=== PATIENT | male | born 1940 | race Caucasian/White ===

== ENCOUNTER 2017-05-23 08:53 | Day surgery (SDC) | payer MEDICARE, OTHER ==
[2017-05-23] MEDS ORDERED: PHENYLEPHRINE 2.5% OPHTH 2 ML DROPS ONE (09:32)
[2017-05-23] MEDS ORDERED: LACTATED RINGERS 500 ML IV ONE (09:42)
[2017-05-23] MEDS ORDERED: PROPARACAINE 0.5% OPHTH DROPS 15 ML OPTH ONE ×2 (09:50→10:55)
[2017-05-23] MEDS ORDERED: KETOROLAC 0.45% OPHTH DROPS OPTH ONE (09:50)
[2017-05-23] MEDS ORDERED: CYCLOPENTOLATE 1% OPHTH DROPS 2 ML OPTH ONE (09:50)
[2017-05-23] MEDS ORDERED: PHENYLEPHRINE 2.5% OPHTH 2 ML DROPS OPTH ONE (09:50)
[2017-05-23] MEDS ORDERED: MIDAZOLAM 2 MG/2 ML VIAL IVP ONE (10:50)
[2017-05-23] MEDS ORDERED: LIDOCAINE-MPF 2% 5 ML VIAL IM ONE (10:50)
[2017-05-23] MEDS ORDERED: CHONDR SULF/HYALURONATE SYRINGE IO ONE (10:55)
[2017-05-23] MEDS ORDERED: EPINEPHrine 1 MG/ML AMP IVP ONE (10:55)
[2017-05-23] MEDS ORDERED: BRIMONIDINE 0.2% OPHTH DROPS 5 ML OPTH ONE (10:55)
[2017-05-23] MEDS ORDERED: TIMOLOL 0.5% OPHTH DROPS OPTH ONE (10:55)
[2017-05-23] MEDS ORDERED: BSS/LIDOCAINE/EPINEPHRINE 1 ML SYRINGE IO ONE (10:56)
[2017-05-23] MEDS ORDERED: TRIAMCIN/MOXIFLOX/VANCO 1 ML VIAL IO ONE (10:56)
[2017-05-23 11:41] VITALS: BP 112/61
--- NOTE | 2017-05-27 07:52 | OPERATIVE REPORT ---
DATE OF SURGERY: 05/23/2017 00:00:00 PREOPERATIVE DIAGNOSIS: Visually significant cataract, left eye. This was his first cataract surgery. POSTOPERATIVE DIAGNOSIS: Visually significant cataract, left eye. This was his first cataract surgery. PROCEDURE: Phacoemulsification and posterior chamber intraocular lens implant, left eye. SURGEON: Nabil Boateng MD ANESTHESIA: Monitored anesthesia care. COMPLICATIONS: None. OPERATIVE INDICATIONS: This is a 77-year-old man with progressive vision loss in the left eye due to 2+ nuclear sclerotic cataract. Best corrected visual acuity was 20/40, with glare to 20/60 in the left eye. Indications for surgery were overall decrease in vision, difficulty seeing words on a computer screen, difficulty reading, difficulty seeing words and game scores on TV, difficulty seeing street signs, difficulty driving in low light or at night, difficulty driving at night because of headlights from other vehicles, difficulty with glare of bright lights in any situation, and decreased acuity with fire arms. He was consented at length concerning the risks and benefits of cataract surgery , after which he expressed a desire to proceed with surgery. OPERATIVE PROCEDURE: The patient was taken into operating room #2 and placed under monitored anesthesia care. A surgical time-out was conducted, confirming correct the patient, correct procedure, and correct surgical site. He was given topical anesthesia and then prepped and draped in the usual sterile fashion. The eye was entered at the 6- and 3-o'clock positions. Intracameral lidocaine was injected into the anterior chamber, followed by Viscoat. A continuous tear curvilinear capsulorrhexis was performed. The nucleus was hydrodissected and phacoemulsified. The cortex was evacuated using automated infusion and aspiration. Provisc was injected into the capsular bag and a 20.5-diopter intraocular lens inserted into the bag. Approximately 0.7 mL of a mixture of triamcinolone, moxifloxacin, and vancomycin was injected subconjunctivally in the superior quadrant for infection and inflammation prophylaxis. I/A was used to evacuate the viscoelastic materials. The eye was inflated to physiologic pressure using balanced salt solution and found to be watertight. The patient was taken from the operating room in good condition and given postoperative instructions. JOB #: [id number] EXT JOB #:[id number] [facility]
== END 2017-05-23 08:54 | disposition home or self-care (01) ==
LOC: SDS 08:53
PROVIDERS: ATTEND Ophthalmology
PROC: 08RK3JZ Replacement of Left Lens with Synthetic Substitute, Percutaneous Approach (ICD-10-PCS; principal; 2017-05-23 10:30)
DX: H25.12 Age-related nuclear cataract, left eye (principal); I10 Essential (primary) hypertension; J44.9 Chronic obstructive pulmonary disease, unspecified; Z82.49 Family history of ischemic heart disease and other diseases of the circulatory system; Z83.3 Family history of diabetes mellitus; Z80.9 Family history of malignant neoplasm, unspecified; Z79.82 Long term (current) use of aspirin; Z87.891 Personal history of nicotine dependence
CPT/HCPCS: 66984; A9270; V2632

== ENCOUNTER 2017-06-20 11:22 | Outpatient (CLI) | payer MEDICARE, OTHER ==
--- NOTE | 2017-06-21 11:00 | Ultrasound Report ---
CAROTID DUPLEX: 06/20/2017 CLINICAL INDICATION: Carotid disease. TECHNIQUE: Real-time sonographic vascular imaging was performed by the record press supervisor through the carotid arteries utilizing both color-flow and Doppler spectral analysis. Multiple loan servicing representative static images were saved for review. Vessel PSV cm/sec 2D Plaque Estimate % ICA/CCA PSV EDV cm/sec % Stenosis RCCA Prox 104 -- RCCA Dist 93 14 RECA 261 -- RT BULB 112 -- 1.8 26 JEREMY Prox 176 -- 1.9 36 JEREMY Mid 151 -- 1.6 26 JEREMY Dist 93 -- 1.0 23 RVA 49 RVA flow direction: Antegrade. Vessel PSV cm/sec 2D Plaque Estimate % ICA/CCA PSV EDV cm/sec % Stenosis LCCA Prox 124 -- LCCA Dist 122 13 LECA 133 -- LFT BULB 202 -- 1.7 54 LICA Prox 175 -- 1.4 39 LICA Mid 217 -- 1.8 38 LICA Dist 129 -- 1.1 24 LVA 57 LVA flow direction: Antegrade. Velocity criteria are extrapolated from diameter data as defined by the Society of Radiologists in Ultrasound Consensus Conference Radiology 2003; 229; 340-346. Degree of Stenosis % ICA PSV cm/sec Plaque Estimate % ICA/CCA RSV Ratio ICA EDV cm/sec Normal < 125 None < 2.0 < 40 <50 < 125 < 50 < 2.0 < 40 50-69 125 - 130 >/= 50 2.0 - 4.0 40 - 100 >/= 70 but less than near occlusion > 230 >/= 50 > 4.0 > 100 Near occlusion High, low, or undetectable Visible lumen Variable Variable Total occlusion Undetectable No detectable lumen Not applicable Not applicable FINDINGS RIGHT: There is moderate calcified plaquing in the right carotid bifurcation, without evidence of a focal hemodynamically significant stenosis. LEFT: There is moderate calcified plaquing in the left carotid bifurcation, without evidence of a focal hemodynamically significant stenosis. The vertebral arteries demonstrate antegrade flow bilaterally. IMPRESSION: MODERATE CALCIFIED PLAQUING BILATERALLY, WITHOUT EVIDENCE OF A FOCAL HEMODYNAMICALLY SIGNIFICANT CAROTID STENOSIS. MTDD
== END 2017-06-20 11:23 | disposition home or self-care (01) ==
LOC: DI 11:22
PROVIDERS: ATTEND Internal Medicine Cardiovascular Disease
DX: R09.89 Other specified symptoms and signs involving the circulatory and respiratory systems (principal); I77.9 Disorder of arteries and arterioles, unspecified; R01.1 Cardiac murmur, unspecified; I10 Essential (primary) hypertension
CPT/HCPCS: 93880

== ENCOUNTER 2022-04-04 10:30 | Outpatient (CLI) | payer MEDICARE, OTHER | END 2022-04-04 23:59 | disposition home or self-care (01) | LOC: LAB.N 10:30 | PROVIDERS: ATTEND Registered Nurse | DX: L72.3 Sebaceous cyst (principal) | CPT/HCPCS: 87070; 87077; 87181; 87205 ==

== ENCOUNTER 2023-02-19 12:56 | Outpatient (CLI) | payer MEDICARE, OTHER ==
[2023-02-19 14:08] VITALS: BP 86/48
--- NOTE | 2023-02-19 14:08 | SLEEP CARE CONSULTATION ---
Information from patient questionnaire entered by Sandi Mclean. I have reviewed and concur with the information entered by Sandi Mclean. This document represents the service I personally performed and the decisions made by me, Oksana Underwood ARNP. History of Present Illness Service Date and Time: 02/19/2023 1256 Reason for Visit: New patient (REQUEST FOR MEDICAL RECORDS AND SLEEP STUDY DONE, WAITING NOW ON RESPONSE), sleep apnea on CPAP therapy Accompanied by: Daughter Chief Complaint: reports: Snoring, Observed pauses in breathing Date of Onset: YRS Usual bedtime: 830PM Time it takes to fall asleep: 5MIN Snores at night: Yes Observed to quit breathing while asleep: Yes Number of times waking at night: 2-3 Reasons for waking at night: reports: Bathroom, Other (NOISE, UNKNOWN) Toss, Turn, or Twitch while sleeping: Yes Recalls having dreams: Yes Usually gets out of bed at: 730AM-NOON Feels refreshed in the morning: Yes Morning headache: No Sleepy or fatigued during the day: Yes Ever fallen asleep while driving: No Takes day naps: Yes Dreams during day naps: No Prior sleep studies: Yes Year and Where: [facility] 2011 Type of Sleep Study: Polysomnography Additional HPI information: TAMERA RIZO was previsously diagnosed to have severe, AHI 39.5, obstructive sleep apnea-hypopnea syndrome as noted 01/28/2012 through [facility] and comes in today with daughter to establish care for CPAP therapy. - Parasomnia Symptoms Ever been unable to move upon waking from sleep: No Walks in sleep: No Talks in sleep: Yes Ever acted out dreams in sleep: No Ever felt weak in the knees when startled or emotional: No Bothered by creepy, crawly, restless sensations in legs: No Problems with memory or concentration: Yes CPAP Compliance Data - Data Reviewed with Patient Average duration of nightly device use: 3 hours 49 minutes Compliance rate %: 14.4 (61/180 days used) Current pressure setting (cmH2O): 7-15 Average residual AHI: 3.2 Central apnea: 0.3 Obstructive apnea: 0.2 Hypopnea: 2.7 Compliance data discussion: He has a Dreamstation 2. He has been getting his CPAP supplies from [employer] with no issues. He is using a [employer]P Eson 2 nasal cushion mask. Subjective Missed days of use due to: reports: mask issues (was putting the mask on side ways; also will take mask off at night), illness (has a rash, causing lots of itching) Patient concerns: reports: air blowing in eyes (improved with adjusting mask). denies: aerophagia, mask discomfort, mask leak noise, condensation in mask/hose, nasal congestion, dry mouth, nose, throat, epistaxis Observed to snore while using device: No Current pressure setting perceived as: comfortable On therapy, patient: reports: sleeping better, more rested overall, other (does not drive) Initial Sargeant Sleepiness Scale score: 10 (02/19/23) Past Medical History Past Medical History: reports: Hypertension, Arthritis, Depression, Emphysema Social History The patient's occupation is a RE. Patient is / and lives in [place]. Have you smoked in the past 12 months: No Years of smokin Quit date: 2009 Alcohol use: No Caffeine use: Yes Caffeine amount and frequency: COFFEE AND PEPSI 3 TIMES A DAY Family History Family history of sleep disordered breathing: No Allergies and Home Medications Known drug allergies: Yes (niacin) Drug allergies reviewed: Yes Home medication list reviewed: Yes Allergy and home medication list: Allergies niacin Adverse Reaction (Verified 02/18/23 10:16) Rash Medications: Simvastatin Finasteride Tamsulosin Sertraline Meclizine Incruse Ellipta Daily MVT Terbinafine HCI 1%, external Vit B12 Alexander Cerda Review of Systems Weight loss over past 5 years: 30 Cardiovascular: reports: high blood pressure Respiratory: reports: shortness of breath Gastrointestinal: denies: heartburn Neurological: reports: gait or balance problems. denies: headaches Psychiatric: reports: depression. denies: Attention Deficit Hyperactivity, anxiety Ear/Nose/Throat: reports: tonsillectomy, wisdom teeth removed Endocrine: reports: sluggishness Musculoskeletal: reports: joint pain, neck pain, back pain Immunologic: reports: rash, itching, allergies to food or environment Physical Exam Vital signs obtained and entered by: SADNI Wolff MA Blood Pressure: 86/48 (LEFT ARM) Cuff size: regular Heart Rate: 52 O2 Saturation: 93 Height: 5 ft 10 in Weight: 189 lb 9.6 oz Body Mass Index: 27.1 BMI Classification: Overweight Neck circumference: 16.5 Heart: regular rate and rhythm Lungs: clear bilaterally Impression and Plan 1. Obstructive Sleep Apnea-Hypopnea Syndrome, severe, with poor treatment compliance and good apnea control. He is accompanied by his daughter who helps with history. On CPAP therapy, the patient has better sleep quality and is more rested overall. He has been having mask issues which have been affecting his compliance. He will take the mask off at night and go back to sleep. He has also just figured out that he was wearing the mask wrong and now that it is on right he can wear it for longer periods. He has some memory issues as well. I advised him to put mask on when he lays down. He can put his mask on his pillow to remind himself to put the CPAP mask on. He was also encouraged to use the CPAP for any naps during the day. He voiced understanding and agreement. Patient's apnea severity and rationale for treatment to reduce apnea, improve sleep quality and reduce cardiovascular and cerebrovascular events was reviewed. I also reviewed the benefit of consistent device use of CPAP for hypertension, depression and emphysema. Patient has a rash that is very irritating. He plans on going to Walk-in to have this checked after this appointment. His blood pressure was also low normal but he stated that he felt normal without any concerns. He will also mention this to them at the Walk-in. 2. Overweight, unspecified. Currently patients BMI is 27.1. Obesity increases the risk of apnea, CPAP pressure requirements and overall health risks especially cardiovascular and diabetes. Thus patient is advised to lose weight. * Continue auto CPAP pressure at 7-15 cmH2O * Update supplies * Notify me if snoring with mask or feeling that the pressure is too much or too little * Attempt to lose weight * Call this office if any problems using CPAP * Return for follow up in 1-2 months, or sooner if concerns arise Counseling Topics: Spare mask, Weight loss health impact Visit Type: In Office Other Participants: Child (Daughter) Time Spent with Patient (minutes): 35 Provider Statement: I spent 100% of the Face to Face Visit with the patient with greater than 50% spent counseling the patient and coordination of care.
== END 2023-02-19 12:57 | disposition home or self-care (01) ==
LOC: SC 12:56
PROVIDERS: ATTEND Nurse Practitioner Family
DX: G47.33 Obstructive sleep apnea (adult) (pediatric) (principal); E66.3 Overweight; Z68.27 Body mass index [BMI] 27.0-27.9, adult
CPT/HCPCS: 99203; G0463; 99212

== ENCOUNTER 2023-04-23 13:02 | Outpatient (CLI) | payer MEDICARE, OTHER ==
--- NOTE | 2023-04-23 14:28 | SLEEP CARE CONSULTATION ---
Information from patient questionnaire entered by Sandi Mclean. I have reviewed and concur with the information entered by Sandi Mclean. This document represents the service I personally performed and the decisions made by me, Oksana Underwood ARNP. History of Present Illness Service Date and Time: 04/23/2023 1302 Previous diagnosis: Severe, Obstructive Sleep Apnea-Hypopnea Syndrome AHI: 39.5 (in 01/2012) Reason for follow up: other (2 MONTH F/U) Accompanied by: Daughter Equipment type: CPAP ([employer] Dreamstation 2; SD CARD NEEDED) Equipment obtained from: Other ([facility]) Mask style: Nasal (Eson) Mask brand: [employer] Backup mask available: Yes (old mask) Last cushion change: 2 weeks ago Prior sleep studies: Yes Year and Where: [facility] 2011 Type of Sleep Study: Polysomnography HPI additional information: TAMERA RIZO was diagnosed to have severe, AHI 39.5, obstructive sleep apnea- hypopnea syndrome and returned today for CPAP therapy two month follow-up. Sleep Study - Results Type of Sleep Study: Polysomnography Prior sleep studies: Yes Year and Where: [facility] 2011 CPAP Compliance Data - Data Reviewed with Patient Average duration of nightly device use: 4 hours 31 minutes Compliance rate %: 36.7 (40/60 days used) Current pressure setting (cmH2O): 7-15 Average residual AHI: 3.2 Central apnea: 0.4 Obstructive apnea: 0.3 Hypopnea: 2.5 Average large leak: 3 secs Subjective Missed days of use due to: reports: other (forget to put on or take off because of not being able to continue using it) Patient concerns: reports: dry mouth, nose, throat (dry mouth). denies: aerophagia, mask discomfort, air blowing in eyes, mask leak noise, condensation in mask/hose, nasal congestion, epistaxis Observed to snore while using device: No Current pressure setting perceived as: comfortable On therapy, patient: reports: sleeping better, awakening more refreshed, being more awake and alert during the day, more rested overall. denies: drowsiness while driving Initial Ludlow Sleepiness Scale score: 10 (02/19/23) Current Ludlow Sleepiness Scale score: 13 Allergies and Home Medications Known drug allergies: Yes (niacin) Drug allergies reviewed: Yes Home medication list reviewed: Yes (no changes) Allergy and home medication list: Allergies niacin Adverse Reaction Rash Review of Systems Review of systems same as previous: Yes (no changes) Physical Exam Vital signs obtained and entered by: Oksana Kulkarni NP Blood Pressure: 122/59 Cuff size: wrist (right) Heart Rate: 51 O2 Saturation: 96 Height: 5 ft 10 in Weight: 184 lb 3.2 oz Body Mass Index: 26.4 BMI Classification: Overweight Impression and Plan 1. Obstructive Sleep Apnea-Hypopnea Syndrome, severe, with fair treatment compliance and good apnea control. On CPAP therapy, the patient has better sleep quality and is more rested overall. He is having trouble with dry mouth and does not feel he could use a chinstrap. I had Tien, lead c t tech, fit him with a [employer] Dreamwear full face mask, medium headgear and cushion. I will write to change him to a full face mask. I will have him come back in 1-2 months to see how he is doing and recheck compliance. Patient's apnea severity and rationale for treatment to reduce apnea, improve sleep quality and reduce cardiovascular and cerebrovascular events was reviewed. I also reviewed the benefit of consistent device use of CPAP for hypertension and depression. 2. Overweight, unspecified. Currently patients BMI is 26.4. Obesity increases the risk of apnea, CPAP pressure requirements and overall health risks especially cardiovascular and diabetes. Thus patient is advised to lose weight. * Continue auto CPAP pressure at 7-15 cmH2O * Mask fitting for Dreamwear full face mask * Notify me if snoring with mask or feeling that the pressure is too much or too little * Attempt to lose weight * Call this office if any problems using CPAP * Return for follow up in 1-2 months, or sooner if concerns arise Counseling Topics: Spare mask, Weight loss health impact Visit Type: In Office Time Spent with Patient (minutes): 29 Provider Statement: I spent 100% of the Face to Face Visit with the patient with greater than 50% spent counseling the patient and coordination of care.
[2023-04-23 14:58] VITALS: BP 122/59
== END 2023-04-23 13:03 | disposition home or self-care (01) ==
LOC: SC 13:02
PROVIDERS: ATTEND Nurse Practitioner Family
DX: G47.33 Obstructive sleep apnea (adult) (pediatric) (principal); E66.3 Overweight; Z68.26 Body mass index [BMI] 26.0-26.9, adult
CPT/HCPCS: 99213; G0463; 99212

== ENCOUNTER 2023-06-05 08:00 | Outpatient (CLI) | payer MEDICARE, OTHER ==
[2023-06-05 16:47] LABS: BILIRUBIN,URINE NEGATIVE (NEGATIVE); CLARITY,URINE CLEAR (CLEAR); GLUCOSE, URINE (UA) NEGATIVE (NEGATIVE); KETONES,URINE (UA) NEGATIVE (NEGATIVE); LEUKOCYTE ESTERASE, URINE NEGATIVE (NEGATIVE); NITRITE,URINE NEGATIVE (NEGATIVE); OCCULT BLOOD,URINE NEGATIVE (NEGATIVE); PROTEIN,URINE NEGATIVE (NEGATIVE); UROBILINOGEN,URINE 0.2 (NORMAL) E.U./dL (NORMAL)
[2023-06-05 17:06] LABS: BACTERIA,URINE None Seen /HPF (None Seen); RBC,URINE 0-5 /HPF (0-5); SQUAMOUS EPITHELIAL CELL,UR NONE SEEN (<= Few); WBC,URINE 0-3 /HPF (0-3)
== END 2023-06-05 23:59 | disposition home or self-care (01) ==
LOC: LAB 08:00
PROVIDERS: ATTEND Urology
DX: N40.1 Benign prostatic hyperplasia with lower urinary tract symptoms (principal); N13.8 Other obstructive and reflux uropathy; N47.1 Phimosis
CPT/HCPCS: 81001; 87086

== ENCOUNTER 2023-06-10 07:26 | Day surgery (SDC) | payer MEDICARE, OTHER ==
[~2023-06-10 07:26] MED LIST: ceFAZolin 2 GM VIAL ONE
[2023-06-10] MEDS ORDERED: LACTATED RINGERS 1,000 ML IV ONE (08:02)
--- NOTE | 2023-06-10 08:21 | ANESTHESIA ---
Pre-Anesthesia VS, & Labs - Diagnosis redundant prepuce - Procedure circumcision Vital Signs: Temp Pulse Resp BP Pulse Ox O2 Flow Rate 36.0 C L 54 L 16 166/57 H 97 06/10/23 07:52 06/10/23 07:52 06/10/23 07:52 06/10/23 07:52 06/10/23 07:52 Height: 5 ft 10 in Weight (kg): 82.5 kg Body Mass Index: 26.1 BMI Classification: Overweight - NPO >8 hours Home Medications and Allergies Cyanocobalamin (Vitamin B-12) [Vitamin B12] 2,500 mcg PO DAILY 02/19/23 Finasteride [Proscar] 5 mg PO DAILY 02/19/23 Meclizine HCl [Antivert] 25 mg PO BID 02/19/23 Mv-Min/Folic/Vit K/Lycop/Coq10 [Daily Multivitamin Capsule] 1 cap PO DAILY 02/19/23 [place] 160 mg PO DAILY 02/19/23 Sertraline HCl 100 mg PO DAILY 02/19/23 Simvastatin [Zocor] 20 mg PO QPM 02/19/23 Tamsulosin HCl [Flomax] 0.4 mg PO DAILY 02/19/23 Umeclidinium [place] [Incruse Ellipta] 62.5 mcg INH DAILY 02/19/23 terbinafine HCL [Rimi] 1 applic TOP PRN PRN 02/19/23 Allergies/Adverse Reactions: Allergies Allergy/AdvReac Type Severity Reaction Status Date / Time niacin AdvReac Rash Verified 02/19/23 13:07 Anes History & Medical History - Anesthetic History Anesthesia Complications: reports: No previous complications - Medical History Cardiovascular: reports: Hypertension, High cholesterol, Coronary artery disease Pulmonary: reports: COPD, Sleep apnea, CPAP use Gastrointestinal: reports: None Urinary: reports: Benign prostate hypertrophy Musculoskeletal: reports: Osteoarthritis Endocrine/Autoimmune: reports: None Skin: reports: Other Smoking Status: Former smoker - Surgical History General: reports: Appendectomy, Colonoscopy Eyes Ears Nose Throat (EENT): reports: Tonsil/Adenoidectomy Orthopedic: reports: Knee replacement Exam General: Alert Dental: WNL, Dentures full Upper, Dentures full Lower Mouth Opening: Greater than 4 Fingerbreadths Neck Mobility: Normal Mallampati classification: I Thyromental Distance: greater than 6 cm Respiratory: Lungs clear Cardiovascular: Regular rate Plan Anesthesia Type: MAC, Total IV Consent for Procedure(s) Verified and Reviewed: Yes Code Status: Attempt Resuscitation ASA classification: 3-Severe systemic disease Is this case an emergency?: Yes
[2023-06-10] MEDS ORDERED: LIDOCAINE-MPF 1% 30 ML VIAL ONE (08:26)
[2023-06-10] MEDS ORDERED: BUPIVACAINE 0.5% PF 10 ML VIAL ONE (08:26)
[2023-06-10] MEDS ORDERED: LIDOCAINE 1% 50 ML MDV SUBQ ONE (08:35)
[2023-06-10] MEDS ORDERED: BACITRACIN ZINC OINT 1 PACKET TOP ONE (08:35)
[2023-06-10] MEDS ORDERED: BUPIVACAINE 0.5% PF 30 ML VIAL SUBQ ONE (08:35)
[2023-06-10] MEDS ORDERED: PROPOFOL 500 MG/50 ML 500 MG/50 ML VIAL ONE (08:38)
[2023-06-10] MEDS ORDERED: LACTATED RINGERS 900 ML IV ONE (09:16)
--- NOTE | 2023-06-10 09:27 | Discharge Plan ---
Discharge Plan Problem Reviewed?: Yes Disposition: Home, Self Care Prescriptions: Docusate Sodium 100Mg Capsule [Colace 100Mg Capsule] 100 mg PO DAILY #14 cap HYDROcod/ACETAM 5/325 [[place] 5/325] 1 tab PO Q4H PRN #10 tablet PRN Reason: Pain Diet: Regular Activity Restrictions: minimal activity 2 weeks Shower Restrictions: No (No bathing) Driving Restrictions: Yes (no driving while taking pain medications) Additional Instructions or Follow Up instructions: Dressing can come off tomorrow. No bathing for 1 week. No sexual activity for 1 month. Okay to shower. No Smoking: If you smoke, Please STOP! Call for help. Follow-up with: Ford Shook [Primary Care Provider] -
--- NOTE | 2023-06-10 09:30 | OPERATIVE REPORT ---
Operative Report - General Procedure Date: 06/10/23 Planned Procedure: Circumcision Pre-Op Diagnosis: redundant foreskin Procedure Performed: circumcision Post Op Diagnosis: redundant foreskin - Procedure Note Primary Surgeon: Wilson Anesthesia Provider: KIAN Mijares Anesthesia Technique: Local, Moderate sedation Pathology: none Estimated Blood Loss (mL): 1 Indications: Redundant foreskin Findings: Redundant foreskin Complications: none - Other Other Information/Narrative: After informed sent was obtained the patient was brought to the OR and laid the supine position the point time the patient anesthetized per anesthesia protocols and prepped draped in usual sterile fashion. A formal timeout was performed to reconfirm the patient procedure and laterality. A penile and ring block was performed using a mixture of 50-50 1% lidocaine and 0.5% Marcaine. The foreskin was noted to be redundant and was marked on the skin side and the inner skin side. The inner cuff was approximately a 1 cm margin around the christensen. Using a scalpel these skin lines were then incised and then 4 clamps were placed to identify the skin and to lift up off of the p enile shaft. Cautery was used to then cut away the redundant skin in a circumferential fashion. Spot cautery was used to maintain hemostasis. The wound was irrigated copiously with saline. The skin was then reapproximated using a combination of simple interrupted and running 4-0 chromic sutures. There is excellent hemostasis. The incision was covered with bacitracin, Xeroform and then gauze tape. The patient was then reversed of anesthesia and brought to PACU for further incident there were no complications. All surgical counts were correct.
[2023-06-10 09:52] VITALS: BP 171/83
--- NOTE | 2023-06-10 13:05 | ANESTHESIA POST OP EVALUATION ---
Anesthesia Post Eval - Post Anesthesia Eval Vitals: Last Vital Signs Temp 36.1 C L 06/10/23 09:16 Pulse 47 L 06/10/23 09:50 Resp 16 06/10/23 09:50 BP 171/83 H 06/10/23 09:50 Pulse Ox 98 06/10/23 09:50 O2 Flow Rate CV Function Including HR & BP: Stable Pain Control: Satisfactory Nausea & Vomiting: Negative Mental Status: Baseline Respiratory Status: Airway Patent Hydration Status: Satisfactory Anesthesia Complications: None
== END 2023-06-10 07:27 | disposition home or self-care (01) ==
LOC: SDS 07:26
PROVIDERS: ATTEND Urology
DX: N47.8 Other disorders of prepuce (principal); I10 Essential (primary) hypertension; J44.9 Chronic obstructive pulmonary disease, unspecified; G47.30 Sleep apnea, unspecified; Z87.891 Personal history of nicotine dependence
CPT/HCPCS: 54150; A9270; J7120

== ENCOUNTER 2023-06-11 14:12 | Outpatient (CLI) | payer MEDICARE, OTHER ==
--- NOTE | 2023-06-11 14:03 | SLEEP CARE CONSULTATION ---
Information from patient questionnaire entered by Sandi Mclean. I have reviewed and concur with the information entered by Sandi Mclean. This document represents the service I personally performed and the decisions made by me, Oksana Underwood ARNP. History of Present Illness Service Date and Time: 06/11/2023 1320 Previous diagnosis: Severe, Obstructive Sleep Apnea-Hypopnea Syndrome AHI: 39.5 (in 01/2012) Equipment type: CPAP (ACEVEDO Dreamstation 2; SD CARD NEEDED) Equipment obtained from: Other ([facility]) Mask style: Nasal (Eson) Backup mask available: Yes (old mask) Prior sleep studies: Yes Year and Where: [place] [id number] Type of Sleep Study: Polysomnography HPI additional information: TAMERA RIZO was diagnosed to have severe, AHI 39.5, obstructive sleep apnea- hypopnea syndrome and returns via telehealth visit today for CPAP therapy two month follow-up. Sleep Study - Results Type of Sleep Study: Polysomnography Prior sleep studies: Yes Year and Where: [facility] 2011 CPAP Compliance Data - Data Reviewed with Patient Average duration of nightly device use: 2 hours 18 minutes Compliance rate %: 3.3 (30 days used) Current pressure setting (cmH2O): 7-15 (avg 12.7) Average residual AHI: 7.1 Average large leak: 0 Subjective Missed days of use due to: reports: mask issues, illness (had surgery) Patient concerns: reports: mask discomfort (Dreamwear full face/coming down into mouth). denies: aerophagia, air blowing in eyes, mask leak noise, condensation in mask/hose, nasal congestion, dry mouth, nose, throat, epistaxis Observed to snore while using device: No Current pressure setting perceived as: comfortable On therapy, patient: reports: other Initial [place] Sleepiness Scale score: 10 (02/19/23) Current [place] Sleepiness Scale score: 11 Allergies and Home Medications Known drug allergies: Yes (niacin) Drug allergies reviewed: Yes Home medication list reviewed: Yes (no changes) Allergy and home medication list: Allergies niacin Adverse Reaction (Verified 06/10/23 09:14) Rash Review of Systems Review of systems same as previous: No (surgery, circumcision) Physical Exam Vital signs obtained and entered by: Oksana Kulkarni NP Height: 5 ft 10 in Weight: 184 lb (per patient) Body Mass Index: 26.4 BMI Classification: Overweight Impression and Plan 1. Obstructive Sleep Apnea-Hypopnea Syndrome, severe, with poor treatment compliance and fair apnea control with elevated residual AHI. On CPAP therapy, the patient has better sleep quality and is more rested overall. Patient tried to use the mask with very to him but states he would find the top of the mask cushion in his mouth. He has not been using it consistently because of this but really likes how the hose is out of the way and how comfortable it is. He still has the nasal cushion, Eson. I encouraged him to use that and I will write for a mask fitting with his DME supplier. We will see if we can get a better mask fit for him. I will then follow-up with him in 1 to 2 months. Patient's apnea severity and rationale for treatment to reduce apnea, improve sleep quality and reduce cardiovascular and cerebrovascular events was reviewed. I also reviewed the benefit of consistent device use of CPAP for hypertension and depression. 2. Overweight, unspecified. Currently patients BMI is 26.4. Obesity increases the risk of apnea, CPAP pressure requirements and overall health risks especially cardiovascular and diabetes. Thus patient is advised to lose weight. * Continue auto CPAP pressure at 7-15 cmH2O * Mask fitting * Notify me if snoring with mask or feeling that the pressure is too much or too little * Attempt to lose weight * Call this office if any problems using CPAP * Return for follow up in 1-2 months, or sooner if concerns arise Counseling Topics: Weight loss health impact Visit Type: Telehealth Phone Video Type: Doximity Patient Location: Home Other Participants: Child (Daughter) Location of Provider: Office Patient agrees and consents to this telehealth visit type: Yes Patient agrees to have their insurance billed: Yes Time Spent with Patient (minutes): 20 Provider Statement: I spent 100% of the Telehealth Phone Call with the patient with greater than 50% spent counseling the patient and coordination of care.
== END 2023-06-11 14:13 | disposition home or self-care (01) ==
LOC: SC 14:12
PROVIDERS: ATTEND Nurse Practitioner Family
DX: G47.33 Obstructive sleep apnea (adult) (pediatric) (principal); E66.3 Overweight; Z68.26 Body mass index [BMI] 26.0-26.9, adult

== ENCOUNTER 2023-08-15 13:02 | Outpatient (CLI) | payer MEDICARE, OTHER ==
--- NOTE | 2023-08-15 13:34 | Sleep Patient Instructions ---
Sleep Center Visit Summary - Patient Visit Information Reason for Visit: Two month followup - Patient Instructions Additional Instructions: You were here for follow up of CPAP therapy. You will be continued on CPAP therapy with pressure at 7-15 cmH2O. Please try the Respironics DreamWisp nasal mask I fitted you to in the office. You should follow up with sleep care in 3 months. You may contact us sooner for any questions or concerns. - Clinic Information Contact: [facility] [address] [place] [address] [email or web address] T: [phone]
--- NOTE | 2023-08-15 13:41 | SLEEP CARE CONSULTATION ---
Information from patient questionnaire entered by Sandi Mclean. I have reviewed and concur with the information entered by Sandi Mclean. This document represents the service I personally performed and the decisions made by , Oksana Underwood ARNP. History of Present Illness Service Date and Time: 08/15/2023 1302 Previous diagnosis: Severe, Obstructive Sleep Apnea-Hypopnea Syndrome AHI: 39.5 (in 01/2012) Reason for follow up: other (2 MONTH F/U) Accompanied by: Arun Vincent Equipment type: CPAP (ACEVEDO Dreamstation 2; SD CARD NEEDED) Equipment obtained from: Other ([employer]) Mask style: Nasal (Eson) Backup mask available: Yes Last cushion change: last week Prior sleep studies: Yes Year and Where: [place] [id number] Type of Sleep Study: Polysomnography HPI additional information: TAMERA RIZO was diagnosed to have severe, AHI 39.5, obstructive sleep apnea- hypopnea syndrome and returned today with Melisa, daughter, for CPAP therapy two month follow-up. Sleep Study - Results Type of Sleep Study: Polysomnography Prior sleep studies: Yes Year and Where: [facility] 2011 CPAP Compliance Data - Data Reviewed with Patient Average duration of nightly device use: 4 hours 37 minutes Compliance rate %: 28.3 (31/60 days used) Current pressure setting (cmH2O): 7-15 Average residual AHI: 3.3 Central apnea: 0.2 Obstructive apnea: 0.2 Average large leak: 12 secs Subjective Missed days of use due to: reports: other (takes mask off when he awakens at night) Patient concerns: reports: other (adjusting mask to head is difficult). denies: aerophagia, mask discomfort, air blowing in eyes, mask leak noise, condensation in mask/hose, nasal congestion, dry mouth, nose, throat, epistaxis Observed to snore while using device: No Current pressure setting perceived as: comfortable On therapy, patient: reports: sleeping better, awakening more refreshed, being more awake and alert during the day, more rested overall. denies: drowsiness while driving Initial [place] Sleepiness Scale score: 10 (02/19/23) Current [place] Sleepiness Scale score: 12 (08/15/23) Allergies and Home Medications Known drug allergies: Yes (niacin) Drug allergies reviewed: Yes Home medication list reviewed: Yes (no changes) Allergy and home medication list: Allergies niacin Adverse Reaction (Verified 08/14/23 15:56) Rash Review of Systems Review of systems same as previous: No (CIRCUMCISION [id number]) Physical Exam Vital signs obtained and entered by: SANDI Wolff MA Blood Pressure: 137/63 (RIGHT) Cuff size: wrist Heart Rate: 57 O2 Saturation: 94 Height: 5 ft 10 in Weight: 183 lb 6.4 oz Body Mass Index: 26.3 BMI Classification: Overweight Impression and Plan 1. Obstructive Sleep Apnea-Hypopnea Syndrome, severe, with poor treatment compliance and good apnea control. On CPAP therapy, the patient has better sleep quality and is more rested overall. He had improved his compliance to 28.3% from 3.3%. He states he went back to the nasal cushion Eson mask but really liked the setup with the full face hybrid Dreamwear mask. He just could not keep the bottom of mask out of his mouth. He really liked the tubing connection at the top of his head, too. I fitted him to a DreamWisp medium cushion with a good fit and he found it comfortable. He will try this and may change to this style. He states he does not have a pacemaker implant device. I will have him return in 3 months to check in with him and recheck compliance. Patient's apnea severity and rationale for treatment to reduce apnea, improve sleep quality and reduce cardiovascular and cerebrovascular events was reviewed. I also reviewed the benefit of consistent device use of CPAP for hypertension and depression. 2. Overweight, unspecified. Currently patients BMI is 26.3. Obesity increases the risk of apnea, CPAP pressure requirements and overall health risks especially cardiovascular and diabetes. Thus patient is advised to lose weight. * Continue auto CPAP pressure at 7-15 cmH2O * Try the DreamWisp, medium cushion * Notify me if snoring with mask or feeling that the pressure is too much or too little * Attempt to lose weight * Call this office if any problems using CPAP * Return for follow up in 3 months, or sooner if concerns arise Mask provided: Yes Counseling Topics: Spare mask, Weight loss health impact Visit Type: In Office Time Spent with Patient (minutes): 29 Provider Statement: I spent 100% of the Face to Face Visit with the patient with greater than 50% spent counseling the patient and coordination of care.
[2023-08-15 13:55] VITALS: BP 137/63; O2SAT 94
== END 2023-08-15 13:03 | disposition home or self-care (01) ==
LOC: SC 13:02
PROVIDERS: ATTEND Nurse Practitioner Family
DX: G47.33 Obstructive sleep apnea (adult) (pediatric) (principal); E66.3 Overweight; Z68.26 Body mass index [BMI] 26.0-26.9, adult
CPT/HCPCS: 99213; G0463; 99212

== ENCOUNTER 2023-09-12 12:44 | Emergency (ER) | payer MEDICARE, OTHER ==
[2023-09-12 13:07] VITALS: O2SAT 95
--- NOTE | 2023-09-12 13:32 | ED Physician Documentation ---
History of Present Illness - Stated complaint Stated Complaint: GLF/MEMORY ISSUES/ - Chief complaint Chief Complaint: Ext Problem - History obtained from History obtained from: Patient, Family - History of Present Illness Timing: Today Pain level max: 3 Pain level now: 3 - Additonal information Additional information: 82-year-old male fell at his assisted living facility today. Complained of pain to the right shoulder, worse with movement, better with rest. Unclear if he struck his head or not. Family states that he has been having memory issues for several months. No significant changes today. The assisted living facility requested to check for UTI. Patient is asymptomatic. No abdominal pain, no dysuria. No fevers. No chills. No cough. No congestion. No loss of consciousness. No neck or back pain. No hip pain. Review of Systems Constitutional: denies: Fever, Chills Respiratory: denies: Cough GI: denies: Nausea, Vomiting, Diarrhea Skin: denies: Rash Musculoskeletal: denies: Neck pain, Back pain Neurologic: denies: LOC PD PAST MEDICAL HISTORY - Past Medical History Cardiovascular: Hypertension, High cholesterol, Coronary artery disease Respiratory: COPD, Sleep apnea, CPAP use Endocrine/Autoimmune: None GI: None : Benign prostate hypertrophy HEENT: Chronic vision loss, Chronic hearing loss Psych: Depression Musculoskeletal: Osteoarthritis Derm: Other - Past Surgical History General: Appendectomy, Colonoscopy Ortho: Knee replacement HEENT: Tonsil/Adenoidectomy - Present Medications Home Medications: Ambulatory Orders Medication Instructions Recorded Confirmed Cyanocobalamin (Vitamin B-12) 2,500 mcg PO DAILY 02/19/23 08/15/23 [Vitamin B12] Finasteride [Proscar] 5 mg PO DAILY 02/19/23 08/15/23 Meclizine HCl [Antivert] 25 mg PO BID 02/19/23 08/15/23 Mv-Min/Folic/Vit K/Lycop/Coq10 1 cap PO DAILY 02/19/23 08/15/23 [Daily Multivitamin Capsule] Saw [place] 160 mg PO DAILY 02/19/23 08/15/23 Sertraline HCl 100 mg PO DAILY 02/19/23 08/15/23 Simvastatin [Zocor] 20 mg PO QPM 02/19/23 08/15/23 Tamsulosin HCl [Flomax] 0.4 mg PO DAILY 02/19/23 08/15/23 Umeclidinium [place] [Incruse 62.5 mcg INH DAILY 02/19/23 08/15/23 Ellipta] terbinafine HCL [Rimi] 1 applic TOP PRN PRN 02/19/23 08/15/23 Docusate Sodium 100Mg Capsule 100 mg PO DAILY #14 cap 06/10/23 08/15/23 [Colace 100Mg Capsule] HYDROcod/ACETAM 5/325 [[place] 5/325] 1 tab PO Q4H PRN #10 tablet 06/10/23 08/15/23 - Allergies Allergies/Adverse Reactions: Allergies Allergy/AdvReac Type Severity Reaction Status Date / Time niacin AdvReac Rash Verified 09/12/23 13:00 - Social History Does the pt smoke?: No Smoking Status: Former smoker Does the pt drink ETOH?: No Does the pt have substance abuse?: No PD ED PE NORMAL - Vitals Vital signs reviewed: Yes - General General: Alert and oriented X 3, No acute distress, Well developed/nourished - HEENT HEENT: Atraumatic (No abrasions or scalp hematomas), PERRL, Ears normal, Moist mucous membranes, Pharynx benign - Neck Neck: Supple, no meningeal sign, No bony TTP - Cardiac Cardiac: RRR, Strong equal pulses - Respiratory Respiratory: No respiratory distress, Clear bilaterally - Abdomen Abdomen: Soft, Non tender, Non distended - Back Back: No CVA TTP, No spinal TTP - Derm Derm: Warm and dry - Extremities Extremities: No edema, Other - Neuro Neuro: Alert and oriented X 3 - Psych Psych: Normal mood, Normal affect - Free text exam Free text exam: Mild pain with range of motion of the right shoulder, no deformity. No swelling. No bony tenderness. Neurovascular intact. Full range of motion of the right elbow, though mild pain. No bony tenderness about the right elbow. No swelling. No skin changes. Otherwise normal exam of the extremities Results - Vitals Vitals: Vital Signs - 24 hr 09/12/23 09/12/23 12:45 15:10 Temperature 37.0 C Heart Rate 56 L 66 Respiratory 16 18 Rate Blood Pressure 125/38 L 123/53 L O2 Saturation 95 95 Oxygen O2 Source Room air - Labs Labs: Laboratory Tests 09/12/23 09/12/23 09/12/23 13:37 13:37 14:38 WBC 12.6 H RBC 4.60 L Hgb 13.9 L Hct 42.1 MCV 91.5 MCH 30.2 MCHC 33.0 RDW 14.7 Plt Count 186 MPV 11.7 H Neut # (Auto) 8.8 H Lymph # (Auto) 1.6 [place] # (Auto) 2.1 H Eos # (Auto) 0.0 Baso # (Auto) 0.1 Absolute Nucleated RBC 0.00 Nucleated RBC % 0.0 Manual Slide Review Indicated Platelet Estimate NORMAL (130-450,000) Platelet Morphology NORMAL APPEARANCE RBC Morph Micro Appear NORMAL APPEARANCE Sodium 137 Potassium 4.3 Chloride 104 Carbon Dioxide 27 Anion Gap 6.0 BUN 24 H Creatinine 1.3 Estimated GFR (MDRD) 53 L Glucose 111 H Calcium 9.9 Total Bilirubin 0.8 AST 24 ALT 11 Alkaline Phosphatase 65 Total Protein 7.8 Albumin 4.4 Globulin 3.4 Albumin/Globulin Ratio 1.3 Urine Color YELLOW Urine Clarity CLEAR Urine pH 5.5 Ur Specific Call 1.025 Urine Protein NEGATIVE Urine Glucose (UA) NEGATIVE Urine Ketones NEGATIVE Urine Occult Blood NEGATIVE Urine Nitrite NEGATIVE Urine Bilirubin NEGATIVE Urine Urobilinogen 0.2 (NORMAL) Ur Leukocyte Esterase NEGATIVE Ur Microscopic Review NOT INDICATED Urine Culture Comments NOT INDICATED - Rads (name of study) head CT Relevant Findings:: Final report received, See rad report R shoulder xray Relevant Findings:: Final report received, See rad report R elbow xray Relevant Findings:: Final report received, See rad report PD Medical Decision Making - ED course Complexity details: reviewed results, re-evaluated patient, considered differential, d/w patient, d/w family ED course: 82-year-old male status post ground-level fall. Unclear what exactly happened and given his recent confusion, head CT was performed. No acute findings on head CT. No significant lab abnormalities. No evidence of UTI. No acute findings on x-ray of the shoulder or elbow. Patient can utilize Motrin and Tylenol as needed for pain at home. Patient is able to use the arm, a sling was not placed as the patient does have a fall risk and he will be unable to protect himself if he fell in a sling. Patient and family counseled regarding signs and symptoms for which I believe and urgent re-evaluation would be necessary. Patient with good understanding of and agreement to plan and is comfortable going home at this time This document was made in part using voice recognition software. While efforts are made to proofread this document, sound alike and grammatical errors may occur. His humeral head positioning on the x-ray may be consistent with a rotator cuff tear, but that would be unlikely from today's event. Likely chronic. Departure - Departure Disposition: 01 Home, Self Care Clinical Impression: Ground-level fall Shoulder pain Qualifiers: Chronicity: acute Laterality: right Qualified Code(s): M25.511 - Pain in right shoulder Condition: Good Instructions: ED Torn Rotator Cuff Follow-Up: Your,doctor in 1 week [Other] Comments: There are no acute findings on x-ray, but it is possible that he could have a rotator cuff tear based on the appearance of your x-ray, this is likely chronic. Your head CT does not show any acute abnormalities. Your urinalysis does not show any signs of infection. You can use Motrin or Tylenol as needed for pain. Please follow-up with your doctor for further care. Make sure you are drinking plenty of water at home. Forms: PCP List Discharge Date/Time: 09/12/23 15:32
[2023-09-12 13:47] LABS: BASOPHILS # (AUTO) 0.1 10^3/uL (0.0-0.1); BASOPHILS % (AUTO) 0.5 %; EOSINOPHILS % (AUTO) 0.2 %; HCT - HEMATOCRIT 42.1 % (42.0-52.0); HGB - HEMOGLOBIN 13.9 g/dL (14.0-18.0); LYMPHOCYTES # (AUTO) 1.6 10^3/uL (1.5-3.5); LYMPHOCYTES % (AUTO) 12.4 %; MEAN CORPUSCULAR HEMOGLOBIN 30.2 pg (27.0-31.0); MEAN CORPUSCULAR VOLUME 91.5 fL (80.0-94.0); MEAN PLATELET VOLUME 11.7 fL (7.4-11.4); MONOCYTES # (AUTO) 2.1 10^3/uL (0.0-1.0); MONOCYTES % (AUTO) 16.5 %; NEUTROPHILS # (AUTO) 8.8 10^3/uL (1.5-6.6); NEUTROPHILS % (AUTO) 69.8 %; PLT - PLATELET COUNT 186 10^3/uL (130-450); RED CELL DISTRIBUTION WIDTH 14.7 % (12.0-15.0); WHITE BLOOD COUNT 12.6 x10^3/uL (4.8-10.8)
--- NOTE | 2023-09-12 13:49 | XRAY Report ---
PROCEDURE: Elbow 3 View RT INDICATIONS: FELL/INJURED R ELBOW/ PAIN + TENDERNESS TECHNIQUE: 3 views of the elbow were acquired. COMPARISON: None. FINDINGS: Bones: No fractures or dislocations. Mild elbow joint osteoarthritic changes are seen. No suspicious bony lesions. Soft tissues: No effusion. No suspicious soft tissue calcifications or masses. IMPRESSION: No acute bony abnormality. Elbow joint osteoarthritis. No significant joint effusion. Reviewed by: Larry Mcdonough MD on 09/12/2023 1:47 PM PDT Approved by: Larry Mcdonough MD on 09/12/2023 1:47 PM PDT Station ID: [id number]
--- NOTE | 2023-09-12 13:49 | XRAY Report ---
PROCEDURE: Shoulder 3 View RT INDICATIONS: fell/injured R SHOULDER/ PAIN + TENDERNESS TECHNIQUE: 3 views of the shoulder were acquired. COMPARISON: None. FINDINGS: Bones: No fractures or dislocations. Moderate to severe acromioclavicular joint and glenohumeral esperanza int osteoarthritic changes are seen. Superior migration of humeral head in relation to glenoid is not ed. No suspicious bony lesions. Visualized ribs appear intact. Soft tissues: No suspicious soft tissue calcifications. The visualized lungs are within normal limi ts. IMPRESSION: No acute shoulder fracture or dislocation. 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 Superior migration of humeral head in relation to glenoid which can be seen associated with full-thickness ro tator cuff tendon rupture. Reviewed by: Larry Mcdonough MD on 09/12/2023 1:48 PM PDT Approved by: Larry Mcdonough MD on 09/12/2023 1:48 PM PDT Station ID: [id number]
[2023-09-12 14:05] LABS: SLIDE REVIEW? Indicated
[2023-09-12 14:10] LABS: PLATELET ESTIMATE, MANUAL NORMAL (130-450,000) (NORMAL); PLATELET MORPHOLOGY NORMAL APPEARANCE (NORMAL); RBC MORPHOLOGY (MULTIPLE) NORMAL APPEARANCE (NORMAL)
[2023-09-12 14:11] LABS: ALBUMIN 4.4 g/dL (3.2-5.5); ALBUMIN/GLOBULIN RATIO 1.3 (1.0-2.2); BILIRUBIN,TOTAL 0.8 mg/dL (0.2-1.0); CALCIUM 9.9 mg/dL (8.5-10.3); CREATININE 1.3 mg/dL (0.6-1.3); POTASSIUM 4.3 mmol/L (3.5-4.5); TOTAL PROTEIN 7.8 g/dL (6.4-8.9)
--- NOTE | 2023-09-12 14:22 | CT Report ---
PROCEDURE: HEAD WO INDICATIONS: fall, head injury TECHNIQUE: Noncontrast 4.5 mm thick angled axial sections acquired from the foramen magnum to the vertex. For r adiation dose reduction, the following was used: automated exposure control, adjustment of mA and/or kV according to patient size. COMPARISON: None. FINDINGS: Image quality: Excellent. CSF spaces: Basal cisterns are patent. No extra-axial fluid collections. Ventricles are normal in size and shape. Brain: No midline shift. No intracranial masses or hemorrhage. Lemon-white matter interface is norm al. Skull and face: Calvarium and visualized facial bones are intact, without suspicious lesions. Sinuses: There is moderate mucosal thickening within the left maxillary sinus. There is mild mucosal thickening seen elsewhere within the paranasal sinuses, including within the ethmoid air cells. There is a mucous retention cyst seen involving the right sphenoid sinus. IMPRESSION: No intracranial hemorrhage is seen. No significant intracranial abnormality is seen. Reviewed by: Saulo Parry MD on 09/12/2023 1:20 PM TAY[facility]OR Approved by: Saulo Parry MD on 09/12/2023 1:20 PM T[facility]OR Station ID: [id number]
[2023-09-12 14:46] LABS: BILIRUBIN,URINE NEGATIVE (NEGATIVE); GLUCOSE, URINE (UA) NEGATIVE (NEGATIVE); KETONES,URINE (UA) NEGATIVE (NEGATIVE); LEUKOCYTE ESTERASE, URINE NEGATIVE (NEGATIVE); NITRITE,URINE NEGATIVE (NEGATIVE); OCCULT BLOOD,URINE NEGATIVE (NEGATIVE); PH,URINE 5.5 PH (5.0-7.5); PROTEIN,URINE NEGATIVE (NEGATIVE); UROBILINOGEN,URINE 0.2 (NORMAL) E.U./dL (NORMAL)
[2023-09-12 14:48] LABS: CLARITY,URINE CLEAR (CLEAR)
[2023-09-12] MEDS ORDERED: MELOXICAM 7.5 MG TABLET PO STA (14:55)
[2023-09-12 15:12] VITALS: BP 123/53
== END 2023-09-12 15:32 | disposition home or self-care (01) ==
LOC: ED 12:44
DX: M25.511 Pain in right shoulder (principal); W19.XXXA Unspecified fall, initial encounter; Y92.099 Unspecified place in other non-institutional residence as the place of occurrence of the external cause; I10 Essential (primary) hypertension; E78.00 Pure hypercholesterolemia, unspecified; I25.10 Atherosclerotic heart disease of native coronary artery without angina pectoris; J44.9 Chronic obstructive pulmonary disease, unspecified; Z79.899 Other long term (current) drug therapy; Z87.891 Personal history of nicotine dependence
CPT/HCPCS: 36415; 70450; 73030; 73080; 80053; 81003; 85025; 99283; 99284; A9270; 81001; 87086

== ENCOUNTER 2023-11-14 13:04 | Outpatient (CLI) | payer MEDICARE, OTHER ==
--- NOTE | 2023-11-14 13:38 | Sleep Patient Instructions ---
Sleep Center Visit Summary - Patient Visit Information Reason for Visit: 3-month follow-up - Patient Instructions Additional Instructions: You were here for follow up of CPAP therapy. You will be continued on CPAP therapy with pressure at 7-15 cmH2O. You should follow up with sleep care in 12 months. You may contact us sooner for any questions or concerns. - Clinic Information Contact: [facility] [address] [place] [address] [email or web address] T: [phone]
--- NOTE | 2023-11-14 13:45 | SLEEP CARE CONSULTATION ---
Information from patient questionnaire entered by Sandi Mclean. I have reviewed and concur with the information entered by Sandi Mclean. This document represents the service I personally performed and the decisions made by , Oksana Underwood ARNP. History of Present Illness Service Date and Time: 11/14/2023 1304 Previous diagnosis: Severe, Obstructive Sleep Apnea-Hypopnea Syndrome AHI: 39.5 (in 01/2012) Reason for follow up: three month (F/U) Accompanied by: Jing Equipment type: CPAP (ACEVEDO Dreamstation 2; SD CARD NEEDED) Equipment obtained from: Other ([facility]) Mask style: Nasal (Eson) Mask brand: Respironics (DreamWisp) Backup mask available: Yes Last cushion change: within last week Prior sleep studies: Yes Year and Where: [place] [id number] Type of Sleep Study: Polysomnography HPI additional information: TAMERA RIZO was diagnosed to have severe, AHI 39.5, obstructive sleep apnea- hypopnea syndrome and returned today for CPAP therapy three month follow-up. Sleep Study - Results Type of Sleep Study: Polysomnography Prior sleep studies: Yes Year and Where: [place] [id number] CPAP Compliance Data - Data Reviewed with Patient Average duration of nightly device use: 3 hours 31 minutes Compliance rate %: 14.4 (33/90 days used) Current pressure setting (cmH2O): 7-15 Average residual AHI: 1.8 Average large leak: 4 secs Subjective Missed days of use due to: reports: illness, other (shoulder injury) Patient concerns: denies: aerophagia, mask discomfort, air blowing in eyes, mask leak noise, condensation in mask/hose, nasal congestion, dry mouth, nose, throat, epistaxis Observed to snore while using device: No Current pressure setting perceived as: comfortable On therapy, patient: reports: sleeping better, awakening more refreshed. denies: drowsiness while driving (not driving) Initial Theresa Sleepiness Scale score: 10 (02/19/23) Current Theresa Sleepiness Scale score: 13 (11/14/23) Allergies and Home Medications Known drug allergies: Yes (as listed) Drug allergies reviewed: Yes Home medication list reviewed: Yes (no changes) Allergy and home medication list: Allergies niacin Adverse Reaction (Verified 11/12/23 12:23) Rash Review of Systems Review of systems same as previous: Yes (NO CHANGE) Physical Exam Vital signs obtained and entered by: SANDI Wolff MA Blood Pressure: 171/67 (LEFT ARM) Cuff size: regular Heart Rate: 51 O2 Saturation: 94 Height: 5 ft 7 in Weight: 177 lb 9.6 oz Body Mass Index: 27.8 BMI Classification: Overweight Impression and Plan 1. Obstructive Sleep Apnea-Hypopnea Syndrome, severe, with poor treatment compliance and good apnea control. On CPAP therapy, the patient has better sleep quality and is more rested overall. Patient struggles with compliance because he will forget to put the mask on and fall asleep without it. He also fell and injured his shoulder which makes it difficult to put the mask on sometimes because of the pain. His daughter states he also had COVID which also affected his compliance. He states he really likes the new mask, Dreamwisp. He feels it is comfortable and enjoys wearing it. He just has not been able to get the compliance up due to all the other factors. We discussed putting the mask on when he lays down, he already puts the mask on his pillow to help remind him to put it on. I also encouraged him to note the time he is laying down so that he knows to keep it on for 4 hours or more. Sometimes he has woke up and took the mask off and his average nightly use is 3 hours and 31 minutes. He voiced understanding and will try these things at home to increase his compliance. Patient's apnea severity and rationale for treatment to reduce apnea, improve sleep quality and reduce cardiovascular and cerebrovascular events was reviewed. I also reviewed the benefit of consistent device use of CPAP for hypertension and depression. 2. Overweight, unspecified. Currently patients BMI is 27.8. Obesity increases the risk of apnea, CPAP pressure requirements and overall health risks especially cardiovascular and diabetes. Thus patient is advised to lose weight. * Continue auto CPAP pressure at 7-15 cmH2O * Notify me if snoring with mask or feeling that the pressure is too much or too little * Attempt to lose weight * Call this office if any problems using CPAP * Return for follow up in 12 months, or sooner if concerns arise Counseling Topics: Spare mask, Weight loss health impact Follow up with Sleep Care in: 1 year Visit Type: In Office Time Spent with Patient (minutes): 23 Provider Statement: I spent 100% of the Face to Face Visit with the patient with greater than 50% spent counseling the patient and coordination of care.
[2023-11-14 13:51] VITALS: BP 171/67; O2SAT 94
== END 2023-11-14 13:05 | disposition home or self-care (01) ==
LOC: SC 13:04
PROVIDERS: ATTEND Nurse Practitioner Family
DX: G47.33 Obstructive sleep apnea (adult) (pediatric) (principal); E66.3 Overweight; Z68.27 Body mass index [BMI] 27.0-27.9, adult
CPT/HCPCS: 99213; G0463; 99212